=== PATIENT | male | born 1980 | race Hispanic/Latino ===

== ENCOUNTER 2024-04-12 16:10 | Emergency (ER) | payer OTHER ==
[~2024-04-12] VITALS: Ht 175.3 cm; Wt 113.4 kg
[~2024-04-12 16:10] MED LIST: ALLEGRA ALLERGY60 MG PO; AUGMENTIN 500-1 EACH PO; CEFDINIR300 MG PO; PYRIDIUM200 MG PO
[2024-04-12 16:12] VITALS: PULSE 94; RESP 16; TEMP 98.4; O2SAT 99
[2024-04-12 16:41] LABS: CLARITY,URINE SL CLOUDY (CLEAR); COLOR,URINE YELLOW (YELLOW); LEUKOCYTE ESTERASE ,URINE SMALL (NEGATIVE); NITRITE,URINE NEGATIVE (NEGATIVE); PH,URINE 5.5 (5 - 7)
[2024-04-12 16:42] LABS: BILIRUBIN,URINE NEGATIVE (NEGATIVE); GLUCOSE, URINE NEGATIVE (NEGATIVE); KETONES,URINE NEGATIVE (NEGATIVE); PROTEIN,URINE DIPSTICK NEGATIVE (NEGATIVE); URINE UROBILINOGEN 0.2 mg/dL (0.2 - 1)
[2024-04-12 16:56] LABS: BACTERIA,URINE MODERATE /HPF; EPITHELIAL CELLS,URINE FEW /LPF
[2024-04-12] MEDS ORDERED: CEFDINIR300 MG PO (17:18)
== END 2024-04-12 17:50 | disposition home or self-care (01) ==
LOC: ER 16:20
DX: R30.0 Dysuria (principal); N39.0 Urinary tract infection, site not specified; Z87.19 Personal history of other diseases of the digestive system
CPT/HCPCS: 81001; 87086; 99283

== ENCOUNTER 2024-10-25 19:40 | Emergency (ER) | payer OTHER ==
[~2024-10-25] VITALS: Ht 175.3 cm; Wt 113.4 kg
[2024-10-25 19:42] VITALS: TEMP 98.3
[2024-10-25 20:24] LABS: BASOPHILS % 0.3 % (0.0-1.0); EOSINOPHILS # (AUTO) 0.1 (0.0-0.4); EOSINOPHILS % 1.1 % (0.0-6.0); HEMATOCRIT 47.8 % (38.2-49.6); HEMOGLOBIN 16.3 g/dL (14.0-18.0); LYMPHOCYTES # (AUTO) 1.5 (1.0-3.2); LYMPHOCYTES % 21.3 % (18.0-39.1); MEAN CORPUSCULAR HGB CONC 34.1 g/dL (31-35); MONOCYTES # (AUTO) 0.5 (0.2-0.8); MONOCYTES % 7.4 % (4.4-11.3); NEUTROPHILS % 69.5 % (38.7-80.0); PLATELET COUNT 259 x10e3/uL (140-360); RED BLOOD COUNT 5.43 x10e6/uL (4.3-5.7); RED CELL DISTRIBUTION WIDTH 13.5 % (11.7-14.4); WHITE BLOOD COUNT 7.17 x10e3/uL (4.8-10.8)
[2024-10-25 20:45] LABS: ALANINE AMINOTRANSFERASE 51 IU/L (0-55); ALBUMIN 4.9 g/dL (3.5-5.0); ALBUMIN/GLOBULIN RATIO 1.4 (0.8-2.0); ALKALINE PHOSPHATASE 75 IU/L (40-150); ANION GAP 15.8 mmol/L (8-16); BILIRUBIN,TOTAL 0.8 mg/dL (0.2-1.2); BLOOD UREA NITROGEN 15 mg/dL (7-26); BUN/CREATININE RATIO 15 (6-25); CALCIUM 10.3 mg/dL (8.4-10.2); CARBON DIOXIDE 25 mmol/L (22-29); CHLORIDE 104 mmol/L (98-107); CREATINE KINASE 430 IU/L (30-200); EST GLOMERULAR FILTRATION RATE 95 ML/MIN (>=60); GLUCOSE 86 mg/dL (74-118); POTASSIUM 3.8 mmol/L (3.5-5.1); SODIUM 141 mmol/L (136-145); TOTAL PROTEIN 8.3 g/dL (6.5-8.1)
[2024-10-25 21:09] LABS: TROPONIN I < 0.001 ng/mL (0-0.300)
[2024-10-25] MEDS: KETOROLAC TROMETHAMINE 30 MG/ML VIAL IV STA (21:09)
[2024-10-25 21:46] LABS: AMPHETAMINES SCREEN,URINE NEGATIVE (NEGATIVE); BENZODIAZEPINES SCREEN,URINE NEGATIVE (NEGATIVE); CANNABINOIDS SCREEN,URINE NEGATIVE (NEGATIVE); COCAINE SCREEN,URINE NEGATIVE (NEGATIVE); METHADONE SCREEN, URINE NEGATIVE (NEGATIVE); OPIATES SCREEN,URINE NEGATIVE (NEGATIVE); PHENCYCLIDINE SCREEN,URINE NEGATIVE (NEGATIVE)
[2024-10-25 23:25] LABS: CREATINE KINASE 352 IU/L (30-200)
[2024-10-25 23:30] LABS: TROPONIN I < 0.001 ng/mL (0-0.300)
[2024-10-26 00:15] VITALS: PULSE 94; RESP 17
[2024-10-26 00:22] VITALS: BP 132/94; O2SAT 96
== END 2024-10-26 00:23 | disposition home or self-care (01) ==
LOC: ER 19:50
DX: R06.02 Shortness of breath (principal); R07.89 Other chest pain; I49.3 Ventricular premature depolarization; Z87.19 Personal history of other diseases of the digestive system
CPT/HCPCS: 36415; 71045; 80053; 80307; 82550; 83690; 83880; 84484; 85025; 85379; 93005; 99284; J1885